=== PATIENT | male | born 1975 | race Caucasian/White ===

== ENCOUNTER 2022-02-12 20:30 | Emergency (ER) | payer OTHER ==
[~2022-02-12] VITALS: Ht 177.8 cm; Wt 86.4 kg
[2022-02-13] MEDS ORDERED: BOOSTRIX/ADACEL VACCINE (DIPHTH/PERTUSS/ACELL/TETANUS) 0.5ML SYR IM ONE (00:50)
[2022-02-13] MEDS ORDERED: NEOSPORIN OINT 0.9 GM PKT TOP ONE (01:05)
[2022-02-13 01:39] VITALS: BP 138/86
== END 2022-02-13 01:40 | disposition home or self-care (01) ==
LOC: M ED 20:30
DX: S41.132A Puncture wound without foreign body of left upper arm, initial encounter (principal); S30.810A Abrasion of lower back and pelvis, initial encounter; Y04.0XXA Assault by unarmed brawl or fight, initial encounter; M54.50 Low back pain, unspecified; F12.10 Cannabis abuse, uncomplicated; F10.10 Alcohol abuse, uncomplicated

== ENCOUNTER → 2022-04-17 | Outpatient (REF) | payer OTHER ==
[2022-04-17 19:38] LABS: APPEARANCE, URINE MANUAL CLEAR (CLEAR); COLOR, URINE MANUAL YELLOW (YELLOW)
[2022-04-17 19:39] LABS: BILIRUBIN, URINE MANUAL NEGATIVE (NEGATIVE); BLOOD URINE MANUAL POSITIVE (NEGATIVE); GLUCOSE, URINE (UA) MANUAL NEGATIVE (NEGATIVE); KETONE, URINE MANUAL NEGATIVE (NEGATIVE); LEUKOCYTE ESTERASE, URINE MAN NEGATIVE (NEGATIVE); NITRITE, URINE MANUAL NEGATIVE (NEGATIVE); PH,URINE MAN 6.5 UNITS (5.0 - 7.0); PROTEIN, URINE MANUAL NEGATIVE (NEGATIVE); UROBILINOGEN, URINE MANUAL NORMAL (NORMAL)
[2022-04-17 20:10] LABS: BACTERIA, URINE NONE SEEN; HYALINE CAST, URINE NONE SEEN /lpf (0-1); MUCUS, URINE MOD AMOUNT (NEGATIVE); RBC, URINE 40-50 /hpf (0-3); SQUAMOUS EPITHELIAL CELL URINE SMALL AMOUNT /hpf (SMALL AMT); WBC, URINE NONE SEEN /hpf (0-3)
== END ==
LOC: M SMT 15:09
PROVIDERS: ATTEND Urology
DX: R36.1 Hematospermia (principal)

== ENCOUNTER → 2022-05-22 | Outpatient (REF) | payer OTHER ==
[2022-05-22 15:33] LABS: APPEARANCE, URINE MANUAL CLEAR (CLEAR); COLOR, URINE MANUAL YELLOW (YELLOW)
[2022-05-22 15:34] LABS: BILIRUBIN, URINE MANUAL NEGATIVE (NEGATIVE); BLOOD URINE MANUAL NEGATIVE (NEGATIVE); GLUCOSE, URINE (UA) MANUAL NEGATIVE (NEGATIVE); KETONE, URINE MANUAL NEGATIVE (NEGATIVE); LEUKOCYTE ESTERASE, URINE MAN NEGATIVE (NEGATIVE); NITRITE, URINE MANUAL NEGATIVE (NEGATIVE); PH,URINE MAN 5.5 UNITS (5.0 - 7.0); PROTEIN, URINE MANUAL NEGATIVE (NEGATIVE); UROBILINOGEN, URINE MANUAL NORMAL (NORMAL)
== END ==
LOC: M SMT 14:50
PROVIDERS: ATTEND Urology
DX: R36.1 Hematospermia (principal)

== ENCOUNTER 2023-06-21 11:35 | Day surgery (SDC) | payer OTHER ==
[~2023-06-21] VITALS: Ht 177.8 cm; Wt 93.9 kg
[~2023-06-21 11:35] MED LIST: CEPH500C PO; FLOM0.4C39 PO; KETO10TAB PO; ONDA4TAB6 PO
[2023-06-21] MEDS: NS 1,000 ML IV ONE (12:07)
[2023-06-21 14:03] VITALS: TEMP 97
[2023-06-21 14:17] VITALS: BP 135/93; O2SAT 97
== END 2023-06-21 14:35 | disposition home or self-care (01) ==
LOC: M OPP 11:35
PROVIDERS: ATTEND Surgery
DX: Z12.11 Encounter for screening for malignant neoplasm of colon (principal); K64.1 Second degree hemorrhoids; F17.220 Nicotine dependence, chewing tobacco, uncomplicated; G47.30 Sleep apnea, unspecified; Z99.89 Dependence on other enabling machines and devices; Z79.1 Long term (current) use of non-steroidal anti-inflammatories (NSAID); Z79.891 Long term (current) use of opiate analgesic; Z79.899 Other long term (current) drug therapy